=== PATIENT | male | born 1985 | race Caucasian/White ===

== ENCOUNTER 2024-05-02 15:28 | Emergency (ER) | payer MEDICAID, SELFPAY ==
[2024-05-02 15:44] VITALS: BP 138/86; PULSE 87; RESP 18; TEMP 36.9; O2SAT 97; BMI 26.8
--- NOTE | 2024-05-02 15:54 | ED.EAR ---
HPI - Ear Problem General Chief complaint: Ear Problems Stated complaint: Ear pain / clogged Lt ear Related Data Allergies Allergy/AdvReac Type Severity Reaction Status Date / Time No Known Allergies Allergy Verified 05/02/24 15:54 PMF Social History Social History Advance Directives: No Advance Directives Information Provided: No Physical Exam Vital Signs: Vital Signs: Last Vital Signs Temp 98.5 F 05/02/24 15:44 Pulse 87 05/02/24 15:44 Resp 18 05/02/24 15:44 BP 138/86 05/02/24 15:44 Pulse Ox 97 05/02/24 15:44 O2 Del Method Room Air 05/02/24 15:44 BMI result Body Mass Index 26.8 Course Course Course Narrative: This is a Rapid Medical Examination (RME) performed by Ana Soliz PA-C in triage. Full HPI, ROS, assessment and treatment plan per primary provider in the Main ED. Hx: 38 yo male here w/ decreased hearing L ear x4 days. states the ear seems clogged. reports surgery on L ear 10 yrs ago in [place] to extend the ear canal . he was told he cannot get any water in the ear. PE/vitals: large amount of cerumen impaction to L ear. Plan: cerumen removal Reevaluation(s) Reevaluation #1: Patient left the emergency department before myself or any of the other clinicians could review or explain physical exam findings, test results, need or lack there of for additional testing, treatment options, or a treatment plan. Discharge Plan Discharge Clinical Impression: Cerumen impaction Patient Disposition: Left W/O Completing Treatment
--- NOTE | 2024-05-02 20:13 | PC.NURSE ---
pt still not in waiting room, pt had to leave due to his kids, reported.
== END 2024-05-02 20:33 | disposition left against medical advice (07) ==
PROVIDERS: Emergency Provider Emergency Medicine Emergency Medical Services
DX: H61.22 Impacted cerumen, left ear (principal); H92.02 Otalgia, left ear
CPT/HCPCS: 99281